=== PATIENT | female | born 1950 ===

== ENCOUNTER → 2024-11-12 | Outpatient (CLI) | payer MEDICARE, BC ==
--- NOTE | 2024-11-17 14:11 | DVHSR ---
APPROVED REPORT EXAM: LIMITED Two-dimensional and M-mode echocardiogram with Doppler and color Doppler. DIMENSIONS LVDd4.9 (3.8-5.7cm)LA (2D)3.9 (1.9-4.0cm)Aortic Root3.9 (2.0-3.7cm) LVDs3.3 (2.5-4.0cm)LA (MM) (1.9-4.0cm)Aortic Cusp Exc1.8 (1.5-2.0cm) EF (%) 62.0 (55-70%)Rt. Atrium4.0 (1.9-4.0cm)Asc. Aorta cm IVSd1.1 (0.7-1.1cm)RV (D) (1.8-2.4cm) PWd1.0 (0.7-1.1cm) Mitral Valve MitralMitral Stenosis E wave0.80m/sMV Mean GR.mmHg A wave0.90m/sMV Peak GR.mmHg E/A ratio0.92D MVAcm2 Aortic Valve Aortic ValveAortic Stenosis V10.90m/Kayleigh Mean GR.3mmHg V21.20m/Kayleigh Peak GR.6mmHg LVOT Diameter2.3 (1.8-2.4cm)Doppler AVA3.11cm2 Pulmonic Valve V20.60m/s Tricuspid Valve TR Velocity2.40m/s [id number] LEFT VENTRICLE The left ventricle is normal size. The left ventricle is normal in structure and function. The Ejection Fraction is within normal limits. RIGHT VENTRICLE The right ventricle is normal size. ATRIA The left atrial size is normal. The right atrium size is normal. The interatrial septum is intact with no evidence for an atrial septal defect. MITRAL VALVE There is mitral annular calcification. There is no mitral valve regurgitation noted. PULMONIC VALVE The pulmonic valve is not well visualized. TRICUSPID VALVE The tricuspid valve is grossly normal. There is trace tricuspid regurgitation. AORTIC VALVE The aortic valve opens well. No aortic regurgitation is present. GREAT VESSELS The aortic root is normal size. PERICARDIAL EFFUSION There is no pericardial effusion. Other Information Quality : Technically LimitedRhythm : Technically limited study due to patient with severe barrel chest. Conclusion EF >60%
== END | disposition home or self-care (01) ==
LOC: Rad HDHVI 13:32
PROVIDERS: ATTEND Internal Medicine Cardiovascular Disease
DX: I34.81 Nonrheumatic mitral (valve) annulus calcification (principal); R60.9 Edema, unspecified
CPT/HCPCS: 93306